=== PATIENT | male | born 1960 | race Caucasian/White ===

== ENCOUNTER 2017-05-07 08:34 | Outpatient (CLI) | payer OTHER ==
[~2017-05-07] VITALS: Ht 182.9 cm; Wt 106.8 kg
--- NOTE | ~2017-05-07 | PRO ---
PATIENT:SAUNDRA KRAFT MEDICAL RECORD: [id number] : 62 LOCATION:D.CAT ADMISSION DATE: 05/07/17 PROCEDURE PERFORMED BY: LAWSON NAILS MD PROCEDURE DATE: 05/07/17 PROCEDURES: 1. Percutaneous transluminal coronary angioplasty stent left anterior descending. 2. Left heart catheterization. 3. Selective coronary angiography. 4. Left ventriculogram. INDICATION: 1. Chest pain compatible with angina. PROCEDURE IN DETAIL: After informed consent was obtained and after detailed explanation of risks, benefits, as well as alternative therapies, the patient elected to proceed with angiogram and angioplasty. The right femoral area was prepped and draped in a normal sterile fashion. The right femoral artery was cannulated via modified Seldinger technique with placement of 6-Upper Sorbian sheath. All catheters exchanged through this sheath. FINDINGS: The left ventriculogram was performed in standard 30 degree MICHEL view, reveals good cardiac wall motion throughout all segments. Overall ejection fraction estimated at 60%. SELECTIVE CORONARY ANGIOGRAPHY: 1. The left main showed no significant angiographic disease. 2. The left anterior descending has previously placed stents. These were widely patent. However, there is a new 70-80% stenosis in the mid distal vessel. 3. The left circumflex has mild irregularities with no flow-limiting stenosis. Previous placed stents are widely patent. 4. The right coronary artery has mild irregularities with no flow-limiting stenosis. PTCA STENT OF THE LEFT ANTERIOR DESCENDING: The stents used were 2.25 X 15 millimeter Edmond. The result was 0% residual stenosis. OVERALL IMPRESSION: Successful percutaneous transluminal coronary angioplasty stent of the left anterior descending going from 70-80% initial stenosis to 0% residual. LAWSON NAILS MD CC: [id number] DICTATION DATE: 05/07/172158 BURGLAR ALARM ASSEMBLER: JDB 05/07/172157 DEP CLI 05/07/17 [place] [id number] [place] [id number]
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
[~2017-05-07 08:34] MED LIST: BAYER CHEWABLE81 MG PO; FISH OIL 1,0001 CA1 PO; LANTUS INSULIN10 ML SQ; NOVOLOG100 U/M1 SQ; PLAVIX75 MG PO; PRILOSEC20 MG PO; PRINIVIL20 MG PO; ZOCOR20 MG PO
[2017-05-07] MEDS ORDERED: MOBIC7.5 MG PO (09:12)
[2017-05-07] MEDS ORDERED: TRESIBA FL100 UNIT/1 SC (09:14)
[2017-05-07 09:20] VITALS: BP 148/80; Ht 182.9 cm; Wt 106.8 kg
[2017-05-07 09:36] LABS: BASOPHILS 0.3 % (0-2); HEMATOCRIT 42.8 % (42.0-54.0); HEMOGLOBIN 15.1 g/dL (13.5-17.5); IMMATURE GRANULOCYTES 0.5 % (0-5); LYMPHOCYTES 43.8 % (15-50); MCH 30.8 pg (26.0-34.0); MCHC 35.3 g/dL (31.0-37.0); MCV 87.3 fL (80.0-100.0); MEAN PLATELET VOLUME 10.9 fL (7.4-10.4); MONOCYTES 11.4 % (2-11); PLATELET COUNT 197 10x3/uL (130-400); RDW 12.4 % (11.5-14.5)
[2017-05-07 10:07] LABS: CALC OSMOLALITY 281 mosm/kg (275-300); CALCIUM 8.9 mg/dL (8.5-10.1); CARBON DIOXIDE 23.7 mmol/L (21.0-32.0); CHLORIDE - SERUM 108 mmol/L (98-107); GLUCOSE 116 mg/dL (74-106); POTASSIUM - SERUM 4.4 mmol/L (3.5-5.1); SODIUM 140 mmol/L (136-145); UREA NITROGEN 17 mg/dL (7-18); eGFR NON AFRICAN AMERICAN 82 mL/min (90-120)
[2017-05-07 10:12] LABS: CKMB 1.1 U/L (0.0-3.6); CREATINE KINASE 185 UL (21-232); TROPONIN-I 0.017 ng/mL (0.000-0.060)
--- NOTE | 2017-05-07 12:03 | NUR ---
1157 FSBS-57, NEW ORDERS 1200-25ML 50% DEXTROSE GIVEN SIVP
[2017-05-07] MEDS ORDERED: BAYER CHEWABLE81 MG PO (13:29)
[2017-05-07] MEDS ORDERED: PLAVIX75 MG PO (13:29)
--- NOTE | 2017-05-07 13:30 | NUR ---
VSS WITH NO DISTRESS NOTED. TR BAND TO R/WRIST CDI NO BLEEDING NO HEMATOMA NOTED. FAMILY AT SIDE
--- NOTE | 2017-05-07 13:30 | NUR ---
RECIEVED TO ROOM VIA STRETCHER FROM FAMILY LAW MEDIATOR WITH REPORTS OF ONE STENT TO THE LAD. TR BAND TO R/WRIST CDI NO BLEEDING NO HEMATOMA NOTED. INSTRUCTED PATIENT TO KEEP RUE STRAIGHT NO BENDING OR FLEXING OF WRIST
--- NOTE | 2017-05-07 14:01 | NUR ---
NO CHANGE IN ASSESSMENT PATINET SLEEPING QUIETLY WITH VSS
--- NOTE | 2017-05-07 14:46 | NUR ---
PATIENT CONTINUES TO SLEEP VSS
--- NOTE | 2017-05-07 15:19 | NUR ---
FAMILY AT SIDE WITH NO C/O AT THIS TIME
--- NOTE | 2017-05-07 16:15 | NUR ---
2 CC AIR REMOVED FROM TR BAND WITH NO BLEEDING NO HEMATOMA NOTED.
--- NOTE | 2017-05-07 16:30 | NUR ---
1630 2 CC AIR REMOVED FROM TR BAND WITH NO BLEEDING NOTED
--- NOTE | 2017-05-07 16:49 | NUR ---
4 CC AIR REMOVED FROM TR BAND WITH NO BLEEDING NO HEMATOMA NOTED. PIV REMOVED WITH DRESSING APPLIED. PATIENT UP TO GET DRESSED FOR DISCHARGE CHEST PAIN DENIED
--- NOTE | 2017-05-07 16:52 | NUR ---
VERBAL AND WRITTEN DISCHARGE GONE OVER WITH PATIENT AND FAMILY VERBALIZED UNDERSTANDING. TR BAND REMOVED WITH NO BLEEDING NO HEMATOMA NOTED. DRESSING APPLIED. CHEST PAIN IS DENIED. LEFT VIA WC TO PARKING FOR TRANSPORT HOME
== END 2017-05-07 16:54 | disposition home or self-care (01) ==
LOC: D.CATH 08:34
PROVIDERS: Internal Medicine Interventional Cardiology
DX: I25.10 Atherosclerotic heart disease of native coronary artery without angina pectoris (principal); R06.00 Dyspnea, unspecified; E78.5 Hyperlipidemia, unspecified; E11.69 Type 2 diabetes mellitus with other specified complication; Z01.812 Encounter for preprocedural laboratory examination

== ENCOUNTER → 2018-06-17 07:36 | Outpatient (CLI) | payer OTHER ==
[~2018-06-17] VITALS: Ht 182.9 cm; Wt 102.3 kg
--- NOTE | ~2018-06-17 | HEMODYNAMI ---
PATIENT:SAUNDRA KRAFT KELLY MEDICAL RECORD: [id number] : 62 LOCATION:[facility] ADMISSION DATE: 06/17/18 Generatedon:06/17/20189:25 Patient name: SAUNDRA KRAFT Patient #: [id number] SSN: : 1960 Date of study: 06/17/2018 Page: Of Hemodynamic Procedure Report Patient Data Patient Demographics Procedure consent was obtained First Name: SAUNDRA Gender: Male Last Name: ABENA : 1960 [facility] Initial: KELLY Age: 58 year(s) Patient #: [id number] Race: Additional ID: [id number] Contact details Address: [place] [address] State: [place] City: [place] Zip code: [address] Past Medical History History of disease Date Diagnosis Comments CAD Allergies: No known allergies Admission Admission Data Admission Date: 06/17/2018 Admission Time: 7:36 Procedure Procedure Types Cath Procedure Diagnostic Procedure LHC LH w/Coronaries PCI Procedure Coronary Stent Coronary Stent Initial Procedure Description Procedure Date Procedure Date: 06/17/2018 Procedure Start Time: 9:06 Procedure End Time: 9:24 Procedure Staff Name Function Rolan Latif MD Performing Physician Jenny Carbajal RT Monitor Earle Zaldivar RN Nurse Eleanor Frost RT Scrub Procedure Data Cath Procedure Fluoroscopy Diagnostic fluoroscopy Total fluoroscopy Time: 2.2 time: 2.2 min min Diagnostic fluoroscopy Total fluoroscopy dose: 238 dose: 238 mGy mGy Contrast Material Contrast Material Type Amount (ml) Isovue 300 80 Entry Location Entry Primary Successful Side Size Upsize Upsize Entry Closure Gonzalez ccessful Closure Location (Fr) 1 (Fr) 2 (Fr) Remarks Device Remarks Radial Right 6 Fr Mechanical artery Short Compression Estimated blood loss: 10 ml Diagnostic catheters Device Type Used For End Catheter Placement DIAGNOSTIC Blakeslee 110cm 5 LV Angiography Fr catheter ([id number]) DIAGNOSTIC Blakeslee 110cm 5 Left Coronary Fr catheter (111155) Angiography DIAGNOSTIC Blakeslee 110cm 5 Right Coronary Fr catheter (362126) Angiography Procedure Complications No complications Procedure Medications Medication Administration Route Dosage Oxygen etCO2 Nasal cannula 2 l/min Heparin Flush Bag added to field 2 bags (1000units/500ml NS) 0.9% NaCl I.V. 100 ml/hr Fentanyl I.V. 50 mcg Versed I.V. 1 mg Radial Cocktail added to field 1 syringe (Verapomil 2mg/Nitro 400mcg/Heparin 1500units) Radial Cocktail I.A. 1 syringe (Verapomil 2mg/Nitro 400mcg/Heparin 1500units) Fentanyl I.V. 50 mcg Versed I.V. 1 mg Integrilin (Bolus I.V. 9 ml 2mg/ml) Heparin Bolus I.V. 4000 units Integrilin (Bolus wasted 1 ml 2mg/ml) Integrilin (Bolus wasted 1 ml 2mg/ml) Plavix P.O. 600 mg Hemodynamics Rest Heart Rate: 80 (bpm) Snapshots Pre Cath Intra NCS Post Cath Vital Signs Time Heart Resp SPO2 etCO2 NIBP (mmHg) Rhythm Pain Sedation Rate (ipm) (%) (mmHg) Status Level (bpm) 8:55:12 78 16 98 0 155/84(131) NSR 0 (11) 10(A) , No pain 8:59:36 78 17 97 0 157/86(122) NSR 0 (11) 10(A) , No pain 9:04:01 77 17 99 30.8 157/87(127) NSR 0 (11) 10(A) , No pain 9:08:25 74 16 96 34.5 140/71(110) NSR 0 (11) 10(A) , No pain 9:12:33 73 16 93 33 95/57(72) NSR 0 (11) 10(A) , No pain 9:16:43 73 16 95 33 105/59(80) NSR 0 (11) 10(A) , No pain 9:20:52 73 16 96 35.3 106/63(86) NSR 0 (11) 10(A) , No pain Medications Time Medication Route Dose Verified Delivered Reason Note s Effectiveness by by 8:53:54 Oxygen etCO2 2 l/min Rolan Og Per physician Nasal Salomon Zaldivar RN cannula 8:54:03 Heparin Flush added 2 bags Rolan Earle used for Bag to Salomon Zaldivar RN procedure (1000units/500ml field NS) 8:54:13 0.9% NaCl I.V. 100 Rolan Earle Per physician ml/hr Salomon Zaldivar RN 9:08:07 Fentanyl I.V. 50 mcg Rolan Og for sedation Salomon Zaldivar RN 9:08:13 Versed I.V. 1 mg Rolan Velásquezy for sedation Salomon Zaldivar RN 9:08:31 Radial Cocktail added 1 Rolan Og used for (Verapomil to syringe Salomon Zaldivar RN procedure 2mg/Nitro field 400mcg/Heparin 1500units) 9:11:03 Radial Cocktail I.A. 1 Rolan Rolan for (Verapomil syringe Salomon Latif MD vasodilation 2mg/Nitro 400mcg/Heparin 1500units) 9:11:09 Fentanyl I.V. 50 mcg Rolan Og for sedation Salomon Zaldivar RN 9:11:13 Versed I.V. 1 mg Rolan Velásquezy for sedation Salomon Zaldivar RN 9:16:11 Integrilin I.V. 9 ml Rolan Og for (Bolus 2mg/ml) Salomon Zaldivar RN antiplatelet therapy 9:16:21 Heparin Bolus I.V. 4000 Rolan Og for units Salomon Zaldivar RN anticoagulation 9:16:36 Integrilin wasted 1 ml Rolan Og for (Bolus 2mg/ml) Salomon Zaldivar RN antiplatelet therapy 9:18:49 Integrilin wasted 1 ml Rolan Og for (Bolus 2mg/ml) Salomon Zaldivar RN antiplatelet therapy 9:20:19 Plavix P.O. 600 mg Rolan Og for Salomon Zaldivar RN antiplatelet therapy Procedure Log Time Note 8:30:23 Eleanor Frost RT(R) sent for patient. Start room use. 8:48:29 Time tracking: Regular hours (M-F 7:00 - 5:00) 8:48:33 Plan of Care:Hemodynamics will remain stable., Cardiac rhythm will remain stable., Comfort level will be maintained., Respiratory function will remain adequate., Patient/ family verbilizes understanding of procedure., Procedure tolerated without complication., Recovers from procedure without complications.. 8:48:38 Patient received from Pre/Post Procedure Room to [facility] 3 Alert and oriented. Tansferred to table in Supine position. 8:48:39 Warm blankets applied, and angelique hugger turned on for patient comfort. 8:48:39 Correct patient and procedure confirmed by team. 8:48:40 Signed procedure consent form obtained from patient. 8:48:41 ECG and BP/O2 sat monitors applied to patient. 8:53:54 Oxygen 2 l/min etCO2 Nasal cannula was administered by Earle Zaldivar RN; Per physician; 8:54:00 Vital chart was started 8:54:02 Baseline sample Acquired. 8:54:03 Heparin Flush Bag (1000units/500ml NS) 2 bags added to field was administered by Earle Zaldivar RN; used for procedure; 8:54:05 Rhythm: sinus rhythm 8:54:06 Full Disclosure recording started 8:54:10 H&P Date Dictated: 06/17/2018 Within 30 days and on chart., H&P Addendum completed by physician on day of procedure. (MUST COMPLETE FOR ALL OUTPATIENTS). 8:54:11 Pre-procedure instructions explained to patient. 8:54:12 Pre-op teaching completed and patient verbalized understanding. 8:54:13 0.9% NaCl 100 ml/hr I.V. was administered by Earle Zaldivar RN; Per physician; 8:54:14 Family unavailable. 8:54:16 Patient NPO since Midnight. 8:54:18 Is the patient allergic to Iodine/contrast media? No. 8:54:20 Was the patient premedicated? No 8:54:20 Is patient on blood thinner?No 8:54:26 Patient diabetic? Yes. 8:54:27 If diabetic: On Metformin? Yes 8:54:30 If on Metformin: Last Dose? 06/15/2018 8:54:39 Previous problem with sedation/anesthesia? No ? 8:54:41 Snore? Yes 8:54:42 Sleep apnea? No 8:54:43 Deviated septum? No 8:54:43 Opens mouth fully? Yes 8:54:44 Sticks out tongue? Yes 8:54:46 Airway obstruction? No ? 8:54:49 Dentures? No ? 8:54:52 Pre procedure: right dorsailis pedis pulse 2+ Normal; easily identifiable; not easily obliterated 8:54:55 Pre procedure: left dorsailis pedis pulse 2+ Normal; easily identifiable; not easily obliterated 8:54:58 Patient pain scale 0/10 ?. 8:55:04 IV patent on arrival in left forearm with 0.9% NaCl at [facility]. 8:55:07 Lab results completed and on chart. 8:55:13 Right Radial & Right Groin area was prepped with chlora-prep and draped in sterile fashion 8:55:14 Alarms reviewed by R. N. 8:55:14 Sharps counted by scrub and verified by R.N. 9:02:33 Final Timeout: patient, procedure, and site verified with staff and physician. All members of the team are in agreement. 9:02:36 Right Radial site verified by team. 9:02:38 Physical assessment completed. ASA score P 2 - A patient with mild systemic disease as per Rolan Latif MD. 9:02:41 Sedation plan: IV Moderate Sedation Medication:Versed, Fentanyl 9:06:32 Procedure started. 9:06:36 Local anesthetic to right radial artery with Lidocaine 2% by Rolan Latif MD.INITIAL ACCESS ONLY 9:08:07 Fentanyl 50 mcg I.V. was administered by Earle Zaldivar RN; for sedation; 9:08:13 Versed 1 mg I.V. was administered by Earle Zaldivar RN; for sedation; 9:08:31 Radial Cocktail (Verapomil 2mg/Nitro 400mcg/Heparin 1500units) 1 syringe added to field was administered by Earle Zaldivar RN; used for procedure; 9:10:07 A 6 Fr Short sheath was inserted into the Right Radial artery 9:10:37 Use device set Radial Dx or PCI 9:10:38 ACIST Syringe (27283) opened to sterile field. 9:10:38 Medline Cath Pack ([id number]) opened to sterile field. 9:10:39 Bag Decanter () opened to sterile field. 9:10:39 DIAGNOSTIC WIRE .035 260cm J wire (973637) opened to sterile field. 9:10:40 ACIST Hand Control (34179) opened to sterile field. 9:10:40 ACIST Manifold (72595) opened to sterile field. 9:10:41 Tegaderm 4 x 4 (1626W) opened to sterile field. 9:10:44 SHEATH 6Fr Prelude Radial ([id number]) opened to sterile field. 9:10:52 A DIAGNOSTIC Blakeslee 110cm 5 Fr catheter (048203) was advanced over the wire and used for LV Angiography. 9:11:03 Radial Cocktail (Verapomil 2mg/Nitro 400mcg/Heparin 1500units) 1 syringe I.A. was administered by Rolan Latif MD; for vasodilation; 9:11:09 Fentanyl 50 mcg I.V. was administered by Earle Zaldivar RN; for sedation; 9:11:13 Versed 1 mg I.V. was administered by Earle Zaldivar RN; for sedation; 9:11:41 LV gram done using MICHEL 9::44 Injector settings: Ml/sec: 5, Volume: 15, 9:11:49 EF : 60 % 9:12:08 A DIAGNOSTIC Blakeslee 110cm 5 Fr catheter (398999) was advanced over the wire and used for Left Coronary Angiography. 9:13:10 A DIAGNOSTIC Blakeslee 110cm 5 Fr catheter (725266) was advanced over the wire and used for Right Coronary Angiography. 9:13:27 Catheter removed. 9:14:34 Use device set [facility] PCI 9:14:39 INFLATOR Merit BasixCompak (YK2788) opened to sterile field. 9:14:46 CHOICE PT Extra Support 182cm wire ([id number]) opened to sterile field. 9:14:46 GUIDE 6FR XBLAD 3.5 catheter ([id number]) opened to sterile field. 9:16:11 Integrilin (Bolus 2mg/ml) 9 ml I.V. was administered by Earle Zaldivar RN; for antiplatelet therapy; 9:16:21 Heparin Bolus 4000 units I.V. was administered by Earle Zaldivar RN; for anticoagulation; 9:16:23 6 Fr XBLAD 3.5 guide catheter was inserted over the wire 9:16:36 Integrilin (Bolus 2mg/ml) 1 ml wasted was administered by Earle Zaldivar RN; for antiplatelet therapy; 9:17:22 CHOICE PT ES wire advanced. 9:18:40 Place stent Inflation Number: 1 A OSWALDO RX 3.0 x 15 stent ([id number]) was prepped and advanced across the Mid LAD. The stent was deployed at 17 ARNULFO for 0:06 (min:sec). 9:18:49 Integrilin (Bolus 2mg/ml) 1 ml wasted was administered by Earle Zaldivar RN; for antiplatelet therapy; 9:18:49 Stent catheter was removed intact over wire. 9:19:02 Wire removed. 9:19:02 Guide catheter removed. 9:19:10 Sheath removed intact; hemostasis achieved with Mechanical Compression to the Right Radial artery. 9:19:15 Procedure ended.(Physican Out) 9:19:26 Fluoroscopy time 02.20 minutes. 9:19:30 Flurop Dose total: 238 9:19:30 Fluoroscopy dose: 238 mGy 9::34 Contrast amount:Isovue 300 80ml. 9:19:35 Sharps counted by scrub and verified by R.N. 9:19:38 TR band inflated with 12cc of air. 9:19:47 TR BAND Standard ([id number]) opened to sterile field. 9:20:19 Plavix 600 mg P.O. was administered by Earle Zaldivar RN; for antiplatelet therapy; 9:20:43 Insertion/operative site no bleeding no hematoma. 9:20:55 Post right radial artery:stable, clean and dry 9:20:58 Post Procedure Pulses reassessed and unchanged 9:21:01 Post-procedure physical assessment completed. ASA score P 2 - A patient with mild systemic disease as per Rolan Latif MD. 9:21:03 Post procedure rhythm: unchanged. 9:21:06 Estimated blood loss: 10 ml 9:21:08 Post procedure instruction explained to patient.Patient verbalizes understanding. 9:21:08 Patient needs reinforcement of post procedure teaching. 9:21:14 Procedure type changed to Cath procedure, Diagnostic procedure, LHC, LHC w/Coronaries, PCI procedure, Coronary Stent, Coronary Stent Initial 9:21:30 Procedure Complication : No complications 9:21:32 See physician's report for complete and final results. 9:22:21 Procedure and supply charges have been captured, reviewed, submitted and are correct. 9:24:33 Vital chart was stopped 9:24:35 Report given to Pre/Post Procedure Room. 9:24:38 Patient transfered to Pre/Post Procedure Room with Stretcher. 9::49 Procedure ended. 9::49 Full Disclosure recording stopped 9:24:52 End room use (Document Last) Intervention Summary Intervention Notes Time ActionType Lesion and Equipment Used Action# Pressure Duration Attributes 9:18:40 Place stent Mid LAD OSWALDO RX 3.0 x 1 17 00:06 15 stent ([id number]) Device Usage Item Name Manufacture Quantity Catalog Number Hospital Part Current Minimal Lot# / Charge Number Stock Stock Serial# Code ACIST Syringe Acist 1 34257 224941 310066 229457 20 (29560) [employer] Medline Cath Cardinal 1 [id number] 910503 04255 231305 5 Pack Health ([id number]) Bag Decanter Microtek 1 2001S 750241 90607 289871 5 (2001S) Medical Inc. DIAGNOSTIC WIRE St Josh 1 531660 275053 569438 353857 30 .035 260cm J wire (807578) ACIST Hand Acist 1 73357 464406 120236 161881 5 Control (24045) [employer] Inc ACIST Manifold Acist 1 39716 813584 407117 101534 5 (24849) Medical Systems Inc Tegaderm 4 x 4 3M 1 1626W 089248 613958 198183 5 (1626W) SHEATH 6Fr Merit 1 [id number] 776672 948527 556114 5 Prelude Radial Medical ([id number]) DIAGNOSTIC Terumo 1 405013 442419 870663 364873 5 Blakeslee 110cm 5 Fr catheter (660681) INFLATOR Merit Merit 1 VY8489 075162 860542 905092 15 [employer] (UN3701) CHOICE PT Extra Yosemite 1 [id number] 334747 348740 061760 5 Support 182cm Scientific wire ([id number]) GUIDE 6FR XBLAD Cardinal 1 [id number] 685021 808672 649242 10 3.5 catheter Health (03775693) OSWALDO RX 3.0 x Medtronic 1 [id number] 391582 4574691 952573 5 [id number] 15 stent ([id number]) TR BAND Terumo 1 [id number] 955955 326652 213889 40 Standard ([id number]) Signature Audit [place] Stage Time Signature Unsigned Intra-Procedure 06/17/2018 Jenny 9:25:06 AM Counts RT(R) Signatures Monitor : Jenny Signature : Counts RT Date : Time : [facility] [address] [facility] [place] [address]
--- NOTE | ~2018-06-17 | OP ---
PATIENT NAME: SAUNDRA KRAFT MEDICAL RECORD: [id number] :62 LOCATION:D.CAT ADMISSION DATE: SURGEON: LAWSON NAILS MD DATE OF OPERATION: 06/17/2018 PROCEDURES: 1. PTCA stent LAD. 2. Left heart catheterization. 3. Selective coronary angiography. 4. Left ventriculogram. INDICATION: Angina and coronary artery disease. PROCEDURE IN DETAIL: After informed consent was obtained and after a detailed description of the risks, benefits as well as alternative therapies, the patient elected to proceed with angiogram and angioplasty. The right radial area was prepped and draped in normal sterile fashion. Right radial artery was cannulated via modified Seldinger technique with placement of 6-Greenlandic sheath. All catheters exchanged through this sheath. FINDINGS: The left ventriculogram was performed in standard 30-degree MICHEL view, reveals good cardiac wall motion throughout all segments. Overall ejection fraction estimated 60%. SELECTIVE CORONARY ANGIOGRAPHY: 1. Left main is with no significant angiographic disease. 2. Left anterior descending has previously placed stents with 80% stenosis just after the previously placed stents. 3. The left circumflex has moderate irregularities, but no flow-limiting stenosis. 4. Right coronary artery has moderate irregularities, but no flow-limiting stenosis. PLANT DIRECTOR STENT OF THE LAD: The stent used was 3.0 x 15 mm Martin. Result was 0% residual stenosis. OVERALL IMPRESSION: Successful percutaneous transluminal coronary angioplasty stent of the left anterior descending going from 80% initial stenosis to 0% residual. TRANSINT:[id number] Voice Confirmation ID: [id number] DOCUMENT ID: [id number] LAWSON NAILS MD at 1806 CC: [id number] DICTATION DATE: 06/17/18 0929 CHUCK WAGON COOK: 06/17/18 1100 DEP CLI 06/17/18 [place] [id number]
[~2018-06-17 07:36] MED LIST changes: +MOBIC7.5 MG PO; +TRESIBA FL100 UNIT/1 SC
[2018-06-17 08:07] VITALS: BP 110/83; Ht 182.9 cm; Wt 102.3 kg
[2018-06-17 08:59] LABS: BASOPHILS 0.5 % (0-2); EOSINOPHILS 1.6 % (0-7); HEMOGLOBIN 13.1 g/dL (13.5-17.5); IMMATURE GRANULOCYTES 0.7 % (0-5); LYMPHOCYTES 39.4 % (15-50); MCHC 34.5 g/dL (31.0-37.0); MONOCYTES 8.6 % (2-11); NEUTROPHILS 49.2 % (40-80); PLATELET COUNT 224 10x3/uL (130-400); RBC 4.22 10x6/uL (4.20-6.10); RDW 12.7 % (11.5-14.5); WBC 8.1 10x3/uL (4.8-10.8)
[2018-06-17 09:01] LABS: ANION GAP 13.2 mmol/L (8-16); CALCIUM 8.7 mg/dL (8.5-10.1); CARBON DIOXIDE 24.6 mmol/L (21.0-32.0); CREATININE - SERUM 1.4 mg/dL (0.6-1.3); POTASSIUM - SERUM 4.8 mmol/L (3.5-5.1)
== END | disposition home or self-care (01) ==
LOC: D.CATH 07:36
PROVIDERS: Internal Medicine Interventional Cardiology
DX: I25.119 Atherosclerotic heart disease of native coronary artery with unspecified angina pectoris (principal); Z95.5 Presence of coronary angioplasty implant and graft; Z01.812 Encounter for preprocedural laboratory examination